=== PATIENT | female | born 1985 | race Caucasian/White ===

== ENCOUNTER 2018-05-10 05:45 | Day surgery (SDC) | payer OTHER ==
[2018-05-07 12:25] VITALS: BMI 23.5
--- NOTE | 2018-05-09 18:18 | HP ---
HISTORY AND PHYSICAL REASON FOR ADMISSION: Surgery scheduled for 05/10/2018. HISTORY OF PRESENT ILLNESS: Sally Harden is a 32-year-old patient seen with progressive right shoulder pain. We discussed treatment options. She elected to proceed with arthroscopy. Consent regarding the procedure was obtained. PAST MEDICAL HISTORY: Noncontributory. PAST SURGICAL HISTORY: Noncontributory. DAILY MEDICATIONS: Ibuprofen, Glencross. ALLERGIES: None. SOCIAL HISTORY: Patient denies tobacco use. PHYSICAL EXAMINATION: Evaluation of right shoulder: Flexion is 170 degrees, abduction 170 degrees, external rotation is 45 degrees with pain and weakness. Tenderness along the anterolateral acromion rotator cuff insertion site. Impingement sign is positive at 90 degrees. Her distal neurovascular exam is intact. RADIOGRAPHS: Radiographs of the right shoulder revealed a type 2 anterior acromion. An MRI of right shoulder revealed intrasubstance rotator cuff tear. IMPRESSION: Right shoulder impingement with rotator cuff tear. PLAN: Right shoulder arthroscopy with subacromial decompression, possible arthroscopic rotator cuff repair and debridement. Surgery scheduled for 05/10/2018. MMODL / IJN: [id number] /
[2018-05-10] MEDS ORDERED: DEXAMETHASONE SOD PHOSPHATE 10 MG/ML 1 ML VIAL IV ONE (05:50)
[2018-05-10] MEDS ORDERED: ONDANSETRON 4 MG/2 ML VIAL IVP ONE (05:50)
[2018-05-10] MEDS ORDERED: LACTATED RINGERS 1,000 ML IV SCH (05:50)
[2018-05-10] MEDS ORDERED: HYDROmorphone 0.5 MG/0.5 ML SYRINGE IVP PRN (05:50)
[2018-05-10] MEDS ORDERED: MIDAZOLAM 2 MG/2 ML VIAL IV PRN (05:50)
[2018-05-10] MEDS ORDERED: ceFAZolin 1,000 MG in DEXTROSE/WATER 1 50ML.BAG IVPB ONE (06:00)
[2018-05-10] MEDS ORDERED: LIDOCAINE 1% 20 ML VIAL (10MG/ML) FOR IV START INTRADERMA ONE (06:45)
[2018-05-10] MEDS ORDERED: ROPIVACAINE 5 MG/ML 30 ML VIAL ONE (07:33)
[2018-05-10] MEDS ORDERED: fentaNYL (PF) 50 MCG/ML 2 ML AMP ONE (07:33)
[2018-05-10] MEDS ORDERED: KETOROLAC 30 MG/ML 1 ML VIAL ONE (07:33)
[2018-05-10] MEDS ORDERED: MIDAZOLAM 2 MG/2 ML VIAL ONE (07:33)
[2018-05-10] MEDS ORDERED: SUCCINYLCHOLINE CHLORIDE 100 MG/5 ML SYR IV ONE (07:33)
[2018-05-10] MEDS ORDERED: PROPOFOL 10 MG/ML 20 ML VIAL IV ONE (07:33)
[2018-05-10] MEDS ORDERED: MEPERIDINE 50 MG/ML SYRINGE IVP ONE (08:58)
--- NOTE | 2018-05-10 09:03 | P.OP ---
Date of Procedure: 05/10/18 Preoperative Diagnosis: Right shoulder impingement Postoperative Diagnosis: 1. Right shoulder rotator cuff tear 2. Right shoulder impingement 3. Right shoulder superficial labral tear Procedure(s) Performed: 1. Right shoulder arthroscopic rotator cuff repair 2. Right shoulder arthroscopic subacromial decompression 3. Right shoulder arthroscopic debridement labral tear Anesthesia: GETA, regional (Interscalene block) Surgeon: Juan Servin Estimated Blood Loss (ml): 10 Pathology: none sent Condition: stable Disposition: PACU Indications for Procedure: 33-year-old patient seen with progressive right shoulder pain. After having treatment options discussed, she elected to proceed with arthroscopy. Operative Findings: see description of procedure Description of Procedure: Patient underwent an interscalene block by department of anesthesia for postoperative pain control. The patient was then taken to the operative suite. The patient underwent a general anesthetic by the department of anesthesia. The patient was placed into a lateral position and secured. There was appropriate padding of the bony prominence. Right shoulder was then prepped and draped in normal sterile orthopedic fashion. We placed the extremity in 10 pounds of longitudinal traction. A posterior incision was now made for a posterior working portal site. The trocar and cannula were inserted into the glenohumeral joint. Arthroscopy was initiated. Spinal needle was now inserted anteriorly, to ascertain the anterior working portal site. An incision was now made in that area, a trocar was inserted followed by a probe. There was a superficial anterior labral tear present. There was very mild partial tearing long head biceps tendon probably less than 10%. The remaining labrum was intact. I debrided that superficial labral tear down to stable tissue. I debrided that mild fraying of the biceps tendon down to stable tissue. The residual biceps tendon was stable. The anchor was stable. Instruments now removed from the glenohumeral joint. Utilizing the posterior working portal site, the trocar and cannula were inserted into the subacromial space. Arthroscopy initiated. I made an incision 2 fingerbreadths lateral to the acromion. I introduced my trocar followed by my ArthroCare ablator. I now began ablating thick subacromial bursal tissue, which exposed the undersurface of the anterior acromion. There was diminished subacromial space. There was a very prominent anterior acromion. A motorized bur was introduced and a subacromial decompression was performed. I also excised some osteophytes off the inferior aspect of the distal clavicle. The AC joint was visualized and noted to be mildly arthritic. I turned my attention to the rotator cuff tendon. There was a intrasubstance tear involving the posterior aspect supraspinatus. I debrided the margins with a motorized shaver. I repaired the intrasubstance tear with 2 simple interrupted sutures while Hi PRINCE held the camera and assisted with the repair. repair was probed and found to be stable. I injected 1 mL Renue intra-articular. All portal sites were approximated with nylon suture. Sterile dressings were applied followed by a shoulder immobilizer. Jose Juan PRINCE assisted with the procedure. The patient was awakened, transferred to a bed, and taken to recovery in stable condition.
[2018-05-10 09:12] VITALS: RESP 18; TEMP 97.2
[2018-05-10 09:19] VITALS: BP 134/78; PULSE 108
--- NOTE | 2018-05-13 08:17 | P.ONQ ---
Anesthesiology Proc Note - PNB - Peripheral Nerve Block Performed Right Interscalene Single Time Out Performed: Yes Procedure Start Time: 06:59 Procedure Stop Time: 07:04 Indication: Acute Post-Operative Pain, Requested by physician Sedation Type: Sedate with meaningful contact maintained Preparation: Sterile Prep Position: Supine Needle Size: 50mm (2") Needle Gauge: 21 Technique: Ultrasound Injectate: 0.5% Ropivacaine (see comment for volume) (ropi .5% 30cc) Blood Aspirated: No Pain Paresthesia on Injection Noted: No Resistance on Injection: Normal Events: Uneventful and Well Tolerated
== END 2018-05-10 10:05 | disposition home or self-care (01) ==
LOC: OR 05:45
PROVIDERS: ATTEND Orthopaedic Surgery
DX: M75.101 Unspecified rotator cuff tear or rupture of right shoulder, not specified as traumatic (principal); M75.41 Impingement syndrome of right shoulder; S43.491A Other sprain of right shoulder joint, initial encounter; S46.111A Strain of muscle, fascia and tendon of long head of biceps, right arm, initial encounter; X58.XXXA Exposure to other specified factors, initial encounter; M25.711 Osteophyte, right shoulder; M19.011 Primary osteoarthritis, right shoulder; Z79.1 Long term (current) use of non-steroidal anti-inflammatories (NSAID); Z79.891 Long term (current) use of opiate analgesic; F17.210 Nicotine dependence, cigarettes, uncomplicated
CPT/HCPCS: 64415; 81025; 29827; 29826; C1765; J2250; J1100; J2175; J2405; J3010; J1885; J0690; J2795; J0330; J2704